=== PATIENT | female | born 1980 | race Caucasian/White ===

== ENCOUNTER 2016-05-13 19:27 | Emergency (ER) | payer OTHER ==
[2016-05-13] MEDS ORDERED: ACETAMINOPHEN 325 MG TABLET PO ONE (20:08)
--- NOTE | 2016-05-13 20:09 | ER Document Report ---
ED Medical Screen (RME) - General Stated Complaint: HEAD/EAR PAIN Mode of Arrival: Ambulatory Information source: Patient Notes: Patient complains of right sided headache pain and ear pain for the past 10 days. Patient denies any injury or fever. hx: Thyroid I have greeted and performed a rapid initial assessment of this patient. A comprehensive ED assessment and evaluation of the patient, analysis of test results and completion of the medical decision making process will be conducted by additional ED providers. TRAVEL OUTSIDE OF THE [place] IN LAST 30 DAYS: No - Related Data Allergies/Adverse Reactions: No Known Allergies Allergy (Verified 04/30/13 20:31) Past Medical History - Immunizations Immunizations up to date: Yes Hx Diphtheria, Pertussis, Tetanus Vaccination: Yes Physical Exam - Neurological Orientation: AAOx4 [place] Coma Scale Eye Opening: Spontaneous [place] Coma Scale Verbal: Oriented Ada Coma Scale Motor: Obeys Commands [place] Coma Scale Total: 15
--- NOTE | 2016-05-13 22:13 | ER Document Report ---
ED ENT - General Chief Complaint: Headache Stated Complaint: HEAD/EAR PAIN Time seen by provider: 21:56 Mode of Arrival: Ambulatory Information source: Patient Notes: 35-year-old female presents to ED for headache and right ear pain for the past 10 days. She has a history of Darryl's and thyroid disease. She states she thought she had a right ear infection. TRAVEL OUTSIDE OF THE [place] IN LAST 30 DAYS: No - HPI Patient complains to provider of: Ear problem, Other - Headache Onset: Other - 10 days Onset/Duration: Gradual Quality of pain: Other - Throbbing Severity: Moderate Pain Level: 3 Associated symptoms: Ear pain, Headache Similar symptoms previously: Yes Recently seen / treated by doctor: No - Related Data Allergies/Adverse Reactions: No Known Allergies Allergy (Verified 04/30/13 20:31) Past Medical History - General Information source: Patient - Social History Smoking Status: Current Every Day Smoker Cigarette use (# per day): Yes Chew tobacco use (# tins/day): No Smoking Education Provided: Yes - less than 1 minute Frequency of alcohol use: Occasional Drug Abuse: None Lives with: Family Family History: Reviewed & Not Pertinent Patient has suicidal ideation: No Patient has homicidal ideation: No - Past Medical History Cardiac Medical History: Reports: None Pulmonary Medical History: Reports: None EENT Medical History: Reports: None Neurological Medical History: Reports: None Endocrine Medical History: Reports: Hx Hypothyroidism, Other - Darryl's Renal/ Medical History: Reports: None Malignancy Medical History: Reports: None GI Medical History: Reports: None Musculoskeltal Medical History: Reports None Skin Medical History: Reports None Psychiatric Medical History: Reports: None Traumatic Medical History: Reports: None Infectious Medical History: Reports: None Surgical Hx: Negative Past Surgical History: Reports: None - Immunizations Immunizations up to date: Yes Hx Diphtheria, Pertussis, Tetanus Vaccination: Yes Review of Systems - Review of Systems Constitutional: No symptoms reported EENT: Ear pain Cardiovascular: No symptoms reported Respiratory: No symptoms reported Gastrointestinal: No symptoms reported Genitourinary: No symptoms reported Female Genitourinary: No symptoms reported Musculoskeletal: No symptoms reported Skin: No symptoms reported Hematologic/Lymphatic: No symptoms reported Neurological/Psychological: No symptoms reported -: Yes All other systems reviewed and negative Physical Exam - Vital signs Interpretation: Normal - General General appearance: Appears well, Alert - HEENT Head: Normocephalic, Atraumatic Eyes: Normal Pupils: PERRL External canal: Normal Tympanic membrane: Normal Hearing loss: Left Nasal: Purulent discharge, Swelling Mouth/Lips: Normal Mucous membranes: Normal Pharynx: Post nasal drainage Neck: Normal - Respiratory Respiratory status: No respiratory distress Chest status: Nontender Breath sounds: Normal Chest palpation: Normal - Cardiovascular Rhythm: Regular Heart sounds: Normal auscultation Murmur: No - Abdominal Inspection: Normal Distension: No distension Bowel sounds: Normal Tenderness: Nontender Organomegaly: No organomegaly - Back Back: Normal, Nontender - Extremities General upper extremity: Normal inspection, Nontender, Normal color, Normal ROM , Normal temperature General lower extremity: Normal inspection, Nontender, Normal color, Normal ROM , Normal temperature, Normal weight bearing. No: Santiago's sign - Neurological Neuro grossly intact: Yes Cognition: Normal Orientation: AAOx4 Ada Coma Scale Eye Opening: Spontaneous Ada Coma Scale Verbal: Oriented Ada Coma Scale Motor: Obeys Commands [place] Coma Scale Total: 15 Speech: Normal Motor strength normal: LUE, RUE, LLE, RLE Sensory: Normal - Psychological Associated symptoms: Normal affect, Normal mood - Skin Skin Temperature: Warm Skin Moisture: Dry Skin Color: Normal Course - Re-evaluation Re-evalutation: 05/14/16 07:21 Assessment consistent with upper respiratory infection. Patient was given instructions on upper respiratory infection use of Tylenol ibuprofen and cold medicine. Patient instructed to follow-up with her primary doctor if she continues to have the right-sided headache and ear pain. Discharge - Discharge Clinical Impression: Otalgia, right ear Upper respiratory infection Qualifiers: URI type: unspecified URI Qualified Code(s): J06.9 - Acute upper respiratory infection, unspecified Condition: Stable Disposition: HOME, SELF-CARE Additional Instructions: UPPER RESPIRATORY ILLNESS: You have a viral infection of the respiratory passages -- a "cold." This common infection causes nasal congestion, drainage, and often sore throat and cough. It is highly contagious. The disease usually lasts about 10 to 14 days. There is no "cure" for the viral infection -- it must run its course. If there is a complication, such as bacterial infection in the nose, sinuses, middle ear, or bronchial tubes, antibiotics may be required. The antibiotics won't affect the virus. Drink plenty of fluids. A humidifier may help. An expectorant medication or decongestant may make you more comfortable. Use acetaminophen or ibuprofen for fever or aches. See the doctor if fever persists over two days, if there is any significant worsening of your symptoms, or if you simply fail to improve as expected. DECONGESTANT MEDICATION: A decongestant medicine has been suggested. Often this medicine is combined in the same tablet with an antihistamine or expectorant. This type of medicine is helpful in treating a bad cold or sinus condition, as well as in treatment of the nasal congestion of hay fever. It is not of much benefit for lung infections. Decongestant medicines are related to stimulants. They can cause an increase in blood pressure and heart rate. Persons with heart disease and high blood pressure should not take decongestants without discussing this with the physician. If you develop palpitations, chest pain, headache, or tremors, stop the medicine and consult your physician. USE OF ACETAMINOPHEN (Tylenol): Acetaminophen may be taken for pain relief or fever control. It's much safer than aspirin, offering a wider range of "safe" dosages. It is safe during . Some brand names are Tylenol, Panadol, Datril, Anacin 3, Tempra, and Liquiprin. Acetaminophen can be repeated every four hours. The following are maximum recommended dosages: >89 pounds or adults 650 mg to 900 mg Acetaminophen can be repeated every four hours. Maximum dose not to exceed 4000 mg a day. FOLLOW-UP CARE: If you have been referred to a physician for follow-up care, call the physician s office for an appointment as you were instructed or within the next two days. If you experience worsening or a significant change in your symptoms, notify the physician immediately or return to the Emergency Department at any time for re-evaluation.
== END 2016-05-13 22:11 | disposition home or self-care (01) ==
LOC: ER 19:27
DX: H92.01 Otalgia, right ear (principal); J06.9 Acute upper respiratory infection, unspecified; R51 Headache; J34.89 Other specified disorders of nose and nasal sinuses; F17.210 Nicotine dependence, cigarettes, uncomplicated; Z71.6 Tobacco abuse counseling
CPT/HCPCS: 99283

== ENCOUNTER → 2016-10-23 | Outpatient (CLI) | payer OTHER ==
[2016-10-23 11:51] LABS: ABSOLUTE BASOPHILS # (AUTO) 0.1 10^3/uL (0.0-0.2); ABSOLUTE EOSINOPHILS # (AUTO) 0.1 10^3/uL (0.0-0.6); ABSOLUTE LYMPHOCYTES (AUTO) 2.2 10^3/uL (0.5-4.7); ABSOLUTE MONOCYTES (AUTO) 0.7 10^3/uL (0.1-1.4); ABSOLUTE NEUT (AUTO) 5.6 10^3/uL (1.7-8.2); BASOPHILS % (AUTO) 0.7 % (0-2); EOSINOPHILS % (AUTO) 1.3 % (0-6); HEMATOCRIT 41.3 % (36.0-47.0); HEMOGLOBIN 13.9 g/dL (12.0-15.5); HGB HCT DIFFERENCE 0.4; LYMPHOCYTES % (AUTO) 25.6 % (13-45); MEAN CORPUSCULAR HEMOGLOBIN 28.3 pg (27.0-33.4); MEAN CORPUSCULAR HGB CONC 33.8 g/dL (32.0-36.0); MEAN CORPUSCULAR VOLUME 84 fl (80-97); MONOCYTES % (AUTO) 7.7 % (3-13); RED BLOOD COUNT 4.92 10^6/uL (3.72-5.28); RED CELL DISTRIBUTION WIDTH 14.4 % (11.5-14.0); SEGMENTED NEUTROPHILS % (AUTO) 64.7 % (42-78); WHITE BLOOD COUNT 8.7 10^3/uL (4.0-10.5)
[2016-10-23 12:13] LABS: ALANINE AMINOTRANSFERASE 22 U/L (9-52); ALBUMIN 4.3 g/dL (3.5-5.0); ALKALINE PHOSPHATASE 139 U/L (38-126); ANION GAP 14 (5-19); ASPARTATE AMINO TRANSFERASE 16 U/L (14-36); BILIRUBIN,DIRECT 0.3 mg/dL (0.0-0.4); BILIRUBIN,TOTAL 0.4 mg/dL (0.2-1.3); BLOOD UREA NITROGEN 10 mg/dL (7-20); CALCIUM 9.1 mg/dL (8.4-10.2); CARBON DIOXIDE 24 mmol/L (22-30); CHLORIDE 103 mmol/L (98-107); CREATININE RESULT 0.67 mg/dL (0.52-1.25); GLUCOSE 95 mg/dL (75-110); SODIUM 140.7 mmol/L (137-145); TOTAL PROTEIN 7.3 g/dL (6.3-8.2)
== END ==
LOC: OD 11:03
DX: Z00.00 Encounter for general adult medical examination without abnormal findings (principal); E03.9 Hypothyroidism, unspecified
CPT/HCPCS: 36415; 80053; 83036; 84443; 85025

== ENCOUNTER 2016-11-04 10:57 | Emergency (ER) | payer SELFPAY ==
[2016-11-04] MEDS ORDERED: DEXAMETHASONE SOD PHOS INJ 10 MG/1 ML VIAL IM ONE (12:06)
[2016-11-04] MEDS ORDERED: KETOROLAC TROMETHAMINE 60 MG/2 ML SDV IM ONE (12:06)
--- NOTE | 2016-11-04 12:10 | ER Document Report ---
ED General - General Chief Complaint: Back Pain Stated Complaint: BACK PAIN, MID CHEST PAIN, PAIN WITH BREATHING Time Seen by Provider: 11/04/16 12:02 Mode of Arrival: Ambulatory Information source: Patient Notes: 36-year-old female presents with complaints of pain in the midsternal region in her back. Patient denies any chest pain, denies any pain when she is not taking a breathing, pt notes when she takes the deep breath the pain is i nthe chest wall and does not feel deeper in . pt denies any dvt or pe risk factors. Pt is in no distress. denies any recent travel, admits to back pain with movement as well. 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 IN LAST 30 DAYS: No - HPI Onset: Other Onset/Duration: Persistent Quality of pain: Achy Severity: Mild Pain Level: 1 Associated symptoms: Body/muscle aches Exacerbated by: Movement, Deep breathing Relieved by: Denies Similar symptoms previously: No Recently seen / treated by doctor: No - Related Data Allergies/Adverse Reactions: No Known Allergies Allergy (Verified 11/04/16 11:24) Home Medications: Current Home Medications Levothyroxine Sodium 1 tab PO DAILY 11/04/16 [History] Sertraline HCl 2 tab PO DAILY 11/04/16 [History] Past Medical History - Social History Smoking Status: Never Smoker Cigarette use (# per day): No Chew tobacco use (# tins/day): No Smoking Education Provided: No Family History: Reviewed & Not Pertinent Patient has suicidal ideation: No Patient has homicidal ideation: No Endocrine Medical History: Reports: Hx Hypothyroidism Renal/ Medical History: Denies: Hx Peritoneal Dialysis - Immunizations Immunizations up to date: Yes Hx Diphtheria, Pertussis, Tetanus Vaccination: Yes Review of Systems - Review of Systems Notes: REVIEW OF SYSTEMS: CONSTITUTIONAL : Denies fever, chills, or sweats. Denies recent illness. EENT: Denies eye, ear, throat, or mouth pain or symptoms. Denies nasal or sinus congestion or discharge. Denies throat, tongue, or mouth swelling or difficulty swallowing. CARDIOVASCULAR: Denies chest pain. Denies palpitations or racing or irregular heart beat. Denies ankle edema. RESPIRATORY: Denies cough, cold, or chest congestion. Denies shortness of breath, difficulty breathing, or wheezing. GASTROINTESTINAL: Denies abdominal pain or distention. Denies nausea, vomiting , or diarrhea. Denies blood in vomitus, stools, or per rectum. Denies black, tarry stools. Denies constipation. GENITOURINARY: Denies difficulty urinating, painful urination, burning, frequency, blood in urine, or discharge. FEMALE GENITOURINARY: Denies vaginal bleeding, heavy or abnormal periods, irregular periods. Denies vaginal discharge or odor. MUSCULOSKELETAL: admits ot chest wall apin, admits ot back pain SKIN: Denies rash, lesions or sores. HEMATOLOGIC : Denies easy bruising or bleeding. LYMPHATIC: Denies swollen, enlarged glands. NEUROLOGICAL: Denies confusion or altered mental status. Denies passing out or loss of consciousness. Denies dizziness or lightheadedness. Denies headache. Denies weakness or paralysis or loss of use of either side. Denies problems with gait or speech. Denies sensory loss, numbness, or tingling. Denies seizures. PSYCHIATRIC: Denies anxiety or stress. Denies depression, suicidal ideation, or homicidal ideation. ALL OTHER SYSTEMS REVIEWED AND NEGATIVE. PHYSICAL EXAMINATION: GENERAL: Well-appearing, well-nourished and in no acute distress. HEAD: Atraumatic, normocephalic. EYES: Pupils equal round and reactive to light, extraocular movements intact, conjunctiva are normal. ENT: Nares patent, oropharynx clear without exudates. Moist mucous membranes. NECK: Normal range of motion, supple without lymphadenopathy LUNGS: Breath sounds clear to auscultation bilaterally and equal. No wheezes rales or rhonchi. HEART: Regular rate and rhythm without murmurs ABDOMEN: Soft, nontender, nondistended abdomen. No guarding, no rebound. No masses appreciated. Female : deferred Musculoskeletal:completely reproducible pain on the sternum, scapular region. no pain when not moving or breathing deep NEUROLOGICAL: Cranial nerves grossly intact. Normal speech, normal gait. Normal sensory, motor exams PSYCH: Normal mood, normal affect. SKIN: Warm, Dry, normal turgor, no rashes or lesions noted. Dictation was performed using Remark recognition software Physical Exam - Vital signs Vitals: Temp Pulse BP Pulse Ox 98.4 F 101 H 121/78 97 11/04/16 11:24 11/04/16 11:24 11/04/16 11:24 11/04/16 11:24 Course - Re-evaluation Re-evalutation: 11/04/16 12:10 Patient has no DVT or PE risk factors, her pain is completely reproducible on palpation, chest x-ray is pending to rule out any abnormality otherwise appears to be musculoskeletal in nature secondary to her work 11/04/16 13:14 xray noted no acute abnormality, pts symptoms improved, will dc home with antinflammatories and close follow up 11/04/16 13:17 After performing a Medical Screening Examination, I estimate there is LOW risk for RUPTURED ESOPHAGUS, PNEUMOTHORAX, PULMONARY EMBOLISM, ACUTE CORONARY SYNDROME, OR THORACIC AORTIC DISSECTION, thus I consider the discharge disposition reasonable. I have reevaluated this patient multiple times and no significant life threatening changes are noted. The patient and I have discussed the diagnosis and risks, and we agree with discharging home with close follow-up. We also discussed returning to the Emergency Department immediately if new or worsening symptoms occur. We have discussed the symptoms which are most concerning (e.g., bloody sputum, worsening pain or shortness of breath) that necessitate immediate return. - Vital Signs Vital signs: Temp Pulse Resp BP Pulse Ox 98.4 F 101 H 121/78 97 11/04/16 11:24 11/04/16 11:24 11/04/16 11:24 11/04/16 11:24 Discharge - Discharge Clinical Impression: Chest wall pain, Muscle strain Condition: Stable Disposition: HOME, SELF-CARE Instructions: Anti-Inflammatory Medication ([facility]), Muscle Strain ([facility]), Chest Wall Pain ([facility]), Warm Packs ([facility]) Additional Instructions: Follow up with your physician tomorrow for further care or return to the ED IMMEDIATELY if symptoms worsen or new concerns occur. If you cannot afford to follow up with your primary care physician a list of low cost clinics have been provided at the end of your discharge papers as well. Prescriptions: Naproxen 500 mg PO BID #20 tablet
--- NOTE | 2016-11-04 13:13 | RADIOLOGY REPORT (SQ) ---
EXAM DESCRIPTION: CHEST PA/LAT COMPLETED DATE/TIME: 11/04/2016 1:01 pm REASON FOR STUDY: sternal tenderness COMPARISON: 04/30/2013 TECHNIQUE: Frontal and lateral radiographic views of the chest acquired. NUMBER OF VIEWS: Two view. LIMITATIONS: None. FINDINGS: LUNGS AND PLEURA: No opacities, masses or pneumothorax. No pleural effusion. MEDIASTINUM AND HILAR STRUCTURES: No masses or contour abnormalities. HEART AND VASCULAR STRUCTURES: Heart normal size. No evidence for failure. BONES: Intact. Sternum unremarkable. No substernal hematoma. HARDWARE: None in the chest. OTHER: No other significant finding. IMPRESSION: NO SIGNIFICANT RADIOGRAPHIC FINDING IN THE CHEST. TECHNICAL DOCUMENTATION: JOB ID: [id number] [employer]- All Rights Reserved
[2016-11-04 13:39] VITALS: BP 106/64
== END 2016-11-04 13:39 | disposition home or self-care (01) ==
LOC: ER 10:57
DX: R07.89 Other chest pain (principal); E03.9 Hypothyroidism, unspecified
CPT/HCPCS: 99283; 96372; 71020; J1885; J1100

== ENCOUNTER → 2018-12-31 | Outpatient (CLI) | payer BC ==
--- NOTE | 2018-12-31 15:32 | XCELERA REPORT ---
[address] [facility] [place] [address] Lower Extremity Venous Evaluation Procedure: Color flow and duplex imaging of the veins of the left lower extremity as well as the right Common Femoral vein. Right Sided Venous Evaluation The right common femoral vein is fully compressible. Spontaneous and phasic flow is present in the right common femoral vein. Left Sided Venous Evaluation Normal vessel filling wall to wall, compression and augmentation as well as Colour flow down to the infrageniculate veins. Interpretation Summary No duplex evidence of DVT or obstruction in the left lower extremity nor in the right Common Femoral vein. Name: BEAU BERTRAND Age: 38 yrs Gender: Female : 1980 Patient Status: Outpatient Patient Location: Study Date: 12/31/2018 10:11 AM Reason For Study: LLE PAIN, 21 WKS PREGANT Ordering Physician: SALONI RITTER Performed By: Garett Osullivan : SALONI RITTER > Sang Motley
== END ==
LOC: SP 09:46
PROVIDERS: ATTEND Advanced Practice Midwife
DX: O99.89 Other specified diseases and conditions complicating pregnancy, childbirth and the puerperium (principal); M79.662 Pain in left lower leg; Z3A.21 21 weeks gestation of pregnancy
CPT/HCPCS: 93971

== ENCOUNTER 2019-03-07 09:00 | Emergency (ER) | payer BC ==
[2019-03-07] MEDS ORDERED: IPRATROPIUM/ALBUTEROL 0.5-2.5 MG/3 ML AMPUL NEB ONE ×2 (09:48→12:44)
--- NOTE | 2019-03-07 09:50 | ER Document Report ---
ED Medical Screen (RME) - General Chief Complaint: Shortness Of Breath Stated Complaint: SHORTNESS OF BREATH Time Seen by Provider: 03/07/19 09:45 Primary Care Provider: SALONI RITTER CNM [Primary Care Provider] - Follow up as needed TRAVEL OUTSIDE OF THE [place] IN LAST 30 DAYS: No - HPI Notes: 03/07/19 09:49 38 year old female to the ED from her OBGYN with cough, SOB, back pain that began three days ago. She is unsure if she has had a fever. Denies mamie chest pain. Denies leg swelling or pain. She states that she is 31 weeks and that this is her first . She is a former smoker. I have performed a medical screening exam on the patient and have determined that the patient will require further management by mainside provider. I have placed initial orders to help expedite the patient's care. - Related Data Allergies/Adverse Reactions: No Known Allergies Allergy (Verified 11/04/16 11:24) Past Medical History Endocrine Medical History: Reports: Hx Hypothyroidism Renal/ Medical History: Denies: Hx Peritoneal Dialysis - Immunizations Immunizations up to date: Yes Hx Diphtheria, Pertussis, Tetanus Vaccination: Yes Physical Exam - Vital signs Vitals: Temp Pulse Resp BP Pulse Ox 98.4 F 100 20 134/69 H 96 03/07/19 09:10 03/07/19 09:10 03/07/19 09:10 03/07/19 09:10 03/07/19 09:10 Course - Vital Signs Vital signs: Temp Pulse Resp BP Pulse Ox 98.4 F 100 20 134/69 H 96 03/07/19 09:45 03/07/19 09:10 03/07/19 09:45 03/07/19 09:10 03/07/19 09:45 Doctor's Discharge - Discharge Referrals: SALONI RITTER CNM [Primary Care Provider] - Follow up as needed
[2019-03-07 10:33] LABS: ABSOLUTE EOSINOPHILS # (AUTO) 0.1 10^3/uL (0.0-0.6); ABSOLUTE MONOCYTES (AUTO) 0.7 10^3/uL (0.1-1.4); ABSOLUTE NEUT (AUTO) 10.2 10^3/uL (1.7-8.2); BASOPHILS % (AUTO) 0.3 % (0-2); EOSINOPHILS % (AUTO) 0.7 % (0-6); HEMATOCRIT 34.8 % (36.0-47.0); HEMOGLOBIN 11.9 g/dL (12.0-15.5); LYMPHOCYTES % (AUTO) 15.3 % (13-45); MEAN CORPUSCULAR HGB CONC 34.3 g/dL (32.0-36.0); MEAN CORPUSCULAR VOLUME 90 fl (80-97); MONOCYTES % (AUTO) 5.2 % (3-13); PLATELET COUNT 265 10^3/uL (150-450); RED BLOOD COUNT 3.86 10^6/uL (3.72-5.28); RED CELL DISTRIBUTION WIDTH 14.5 % (11.5-14.0); SEGMENTED NEUTROPHILS % (AUTO) 78.5 % (42-78); TOTAL CELLS COUNTED % (AUTO) 100 %
--- NOTE | 2019-03-07 10:52 | RADIOLOGY REPORT (SQ) ---
EXAM DESCRIPTION: CHEST 2 VIEWS COMPLETED DATE/TIME: 03/07/2019 10:28 am REASON FOR STUDY: back pain, SOB COMPARISON: 11/04/2016 EXAM PARAMETERS: NUMBER OF VIEWS: two views TECHNIQUE: Digital Frontal and Lateral radiographic views of the chest acquired. RADIATION DOSE: NA LIMITATIONS: none FINDINGS: LUNGS AND PLEURA: No opacities, masses or pneumothorax. No pleural effusion. MEDIASTINUM AND HILAR STRUCTURES: No masses or contour abnormalities. HEART AND VASCULAR STRUCTURES: Heart normal size. No evidence for failure. BONES: No acute findings. HARDWARE: None in the chest. OTHER: No other significant finding. IMPRESSION: NO ACUTE RADIOGRAPHIC FINDING IN THE CHEST. TECHNICAL DOCUMENTATION: JOB ID: [id number] [employer]- All Rights Reserved Reading location - IP/workstation name: [email or web address]
[2019-03-07 10:53] LABS: A TYPE INFLUENZA AG NEGATIVE (NEGATIVE); B INFLUENZA AG NEGATIVE (NEGATIVE)
[2019-03-07 11:01] LABS: ALBUMIN 3.6 g/dL (3.5-5.0); ALKALINE PHOSPHATASE 107 U/L (38-126); ANION GAP 11 (5-19); ASPARTATE AMINO TRANSFERASE 16 U/L (14-36); BILIRUBIN,DIRECT 0.2 mg/dL (0.0-0.4); BILIRUBIN,TOTAL 0.3 mg/dL (0.2-1.3); BLOOD UREA NITROGEN 7 mg/dL (7-20); CALCIUM 9.3 mg/dL (8.4-10.2); CARBON DIOXIDE 24 mmol/L (22-30); CHLORIDE 103 mmol/L (98-107); GLUCOSE 93 mg/dL (75-110); TOTAL PROTEIN 6.6 g/dL (6.3-8.2)
[2019-03-07] MEDS ORDERED: ACETAMINOPHEN 325 MG TABLET PO ONE (12:44)
[2019-03-07] MEDS ORDERED: PREDNISONE 20 MG TABLET PO ONE (12:44)
--- NOTE | 2019-03-07 16:19 | ER Document Report ---
ED Respiratory Problem - General Chief Complaint: Shortness Of Breath Stated Complaint: SHORTNESS OF BREATH Time Seen by Provider: 03/07/19 09:45 Primary Care Provider: SALONI RITTER CNM [Primary Care Provider] - Follow up as needed Information source: Patient Notes: Ms. Mcelroy is a 38 yo f w/ PMH of remote asthma presenting to the ED for shortness of breath. Patient is 30 weeks and 3 days with her first , she is a G1, P0. Patient states that she was a 1 pack a day smoker for at least 20 years and quit 1 month ago. Patient states that when she found out she was she started decreasing from the 1 pack however she did completely quit 1 month ago. She endorses URI symptoms with cough nonproductive of sputum, subjective chills without any documented fevers. Patient also adds that she has had upper back pain. The cough and cold symptoms have been going on for the past 3 days. She also endorses some nasal congestion. She has been using Mucinex with no relief. Patient denies any abdominal pain, vomiting or diarrhea. She states she can feel the baby moving without any issues. TRAVEL OUTSIDE OF THE [place] IN LAST 30 DAYS: No - Related Data Allergies/Adverse Reactions: No Known Allergies Allergy (Verified 11/04/16 11:24) Past Medical History - Social History Smoking Status: Former Smoker - Quit 1 month ago, previous 1ppd for 20 yrs Family History: Reviewed & Not Pertinent Patient has suicidal ideation: No Patient has homicidal ideation: No Endocrine Medical History: Reports: Hx Hypothyroidism Renal/ Medical History: Denies: Hx Peritoneal Dialysis - Immunizations Immunizations up to date: Yes Hx Diphtheria, Pertussis, Tetanus Vaccination: Yes Review of Systems - Review of Systems Constitutional: See HPI EENT: No symptoms reported Cardiovascular: No symptoms reported Respiratory: See HPI Gastrointestinal: No symptoms reported Genitourinary: No symptoms reported Female Genitourinary: No symptoms reported Musculoskeletal: No symptoms reported Skin: No symptoms reported Hematologic/Lymphatic: No symptoms reported Neurological/Psychological: No symptoms reported Physical Exam - Vital signs Vitals: Temp Pulse Resp BP Pulse Ox 98.4 F 100 20 134/69 H 96 03/07/19 09:10 03/07/19 09:10 03/07/19 09:10 03/07/19 09:10 03/07/19 09:10 Interpretation: Normal - General General appearance: Appears well, Alert - HEENT Head: Normocephalic, Atraumatic Eyes: Normal Pupils: PERRL - Respiratory Respiratory status: No respiratory distress Chest status: Nontender Breath sounds: Decreased air movement, Nonproductive cough, Rhonchi - In bases bilaterally, Wheezing - Expiratory Chest palpation: Normal - Cardiovascular Rhythm: Regular Heart sounds: Normal auscultation Murmur: No - Abdominal Inspection: Normal Distension: No distension Bowel sounds: Normal Tenderness: Nontender Organomegaly: No organomegaly - Back Back: Normal, Nontender - Extremities General upper extremity: Normal inspection, Nontender, Normal color, Normal ROM, Normal temperature General lower extremity: Normal inspection, Nontender, Normal color, Normal ROM, Normal temperature, Normal weight bearing. No: Santiago's sign - Neurological Neuro grossly intact: Yes Cognition: Normal Orientation: AAOx4 [place] Coma Scale Eye Opening: Spontaneous [place] Coma Scale Verbal: Oriented [place] Coma Scale Motor: Obeys Commands [place] Coma Scale Total: 15 Speech: Normal Motor strength normal: LUE, RUE, LLE, RLE Sensory: Normal - Psychological Associated symptoms: Normal affect, Normal mood - Skin Skin Temperature: Warm Skin Moisture: Dry Skin Color: Normal Course - Re-evaluation Re-evalutation: Patient is generally well-appearing and nontoxic. Initial vitals within normal limits. Differential diagnosis includes URI, pneumonia, influenza Patient was ordered for labs in 1 DuoNeb from triage. CBC notable for leukocytosis of 13 however there is no significant left shift. EKG nonischemic. CMP limits and flu A/flu B are negative. Chest x-ray negative for any acute process. 03/07/19 12:45 Patient evaluated and continues to have ongoing wheezing expiratory phase. Likely URI, given the patient's extensive smoking history. Possibly undiagnosed COPD. Patient is in her third trimester . Will administer 2 additional DuoNeb's as well as prednisone 60 mg p.o. Will reassess after nebs. 03/07/19 16:16 Reassessed and states that her coughing has decreased significantly. On auscultation, she no longer has any wheezes. Patient will be discharged with albuterol every 4-6 hours 1 to 2 puffs as needed for cough or wheezing as well as prednisone for the next 4 days. Patient instructed to follow-up with her OB and given return precautions. - Vital Signs Vital signs: Temp Pulse Resp BP Pulse Ox 98.4 F 100 29 H 138/74 H 97 03/07/19 09:45 03/07/19 09:10 03/07/19 17:01 03/07/19 17:01 03/07/19 17:01 - Laboratory Result Diagrams: 03/07/19 10:05 03/07/19 10:05 Laboratory results interpreted by me: 03/07/19 03/07/19 10:05 10:05 WBC 13.0 H Hgb 11.9 L Hct 34.8 L RDW 14.5 H Absolute Neuts (auto) 10.2 H Seg Neutrophils % 78.5 H Creatinine 0.50 L - EKG Interpretation by Me EKG shows normal: Sinus rhythm, Intervals, QRS Complexes, ST-T Waves Rate: Normal Rhythm: NSR [place]/QRS: Right axis deviation, RBBB Discharge - Discharge Clinical Impression: Wheezing, Third trimester URI (upper respiratory infection) Qualifiers: URI type: unspecified URI Qualified Code(s): J06.9 - Acute upper respiratory infection, unspecified Condition: Good Disposition: HOME, SELF-CARE Instructions: Bronchitis With Bronchospasm (Wheezing) ([facility]), Upper Respiratory Illness ([facility]), Viral Syndrome ([facility]) Additional Instructions: Use the inhaler every 4-6 hours as needed for shortness of breath. You can use 1 to 2 puffs. It is important that you fully exhale before taking the inhaler so you get the dose of albuterol into your lungs. Make sure that you use the prednisone for the next 4 days. Follow-up with your primary care doctor and OB as needed. Prescriptions: Prednisone [Deltasone 20 mg Tablet] 3 tab PO DAILY 4 Days #12 tablet Albuterol Sulfate [Proair HFA Inhalation Aerosol 8.5 gm MDI] 2 puff IH Q4H PRN #1 mdi PRN Reason: Referrals: SALONI RITTER CNM [Primary Care Provider] - Follow up as needed
[2019-03-07 17:03] VITALS: BP 138/74
--- NOTE | 2019-03-08 14:22 | EKG REPORT ---
SEVERITY:- ABNORMAL ECG - SINUS RHYTHM RIGHT BUNDLE BRANCH BLOCK : Confirmed by: Marika Ackerman 08-Mar-2019 14:22:17
== END 2019-03-07 18:03 | disposition home or self-care (01) ==
LOC: ER 09:00
DX: O99.513 Diseases of the respiratory system complicating pregnancy, third trimester (principal); J45.909 Unspecified asthma, uncomplicated; J06.9 Acute upper respiratory infection, unspecified; O26.893 Other specified pregnancy related conditions, third trimester; R06.02 Shortness of breath; R09.81 Nasal congestion; R05 Cough; O99.89 Other specified diseases and conditions complicating pregnancy, childbirth and the puerperium; M54.9 Dorsalgia, unspecified; O99.113 Other diseases of the blood and blood-forming organs and certain disorders involving the immune mechanism complicating pregnancy, third trimester; D72.829 Elevated white blood cell count, unspecified; O99.413 Diseases of the circulatory system complicating pregnancy, third trimester; I45.10 Unspecified right bundle-branch block; Z3A.33 33 weeks gestation of pregnancy; Z87.891 Personal history of nicotine dependence
CPT/HCPCS: 36415; 85025; 80053; 87804; 71046; J7512; J7620; 93005; 93010; 94640; 99285

== ENCOUNTER 2019-03-31 16:05 | Outpatient (CLI) | payer BC ==
--- NOTE | 2019-03-31 17:44 | Non Stress Test Report ---
Non Stress Test Datetime Report Generated by CPN: 03/31/2019 17:44 DEMOGRAPHIC EGA NST: 33.5 INDICATION Indication for Study (NST) Other: AMA MONITORING Monitor Explained: Monitor Explained; Test Explained; Patient Verbalized Understanding Time on Monitor: 03/31/2019 16:18 Time off Monitor: 03/31/2019 16:53 NST Duration: 35 NST INTERVENTIONS NST Interventions: PO Hydration Physician Notified NST: Dr Orozco BABY A: [id number] BABY A Movement : Present Contraction Frequency : irregular FHR Baseline : 140 Accelerations : 15X15 Decelerations : None Variability : Moderate 6-25bpm NST Review: Meets Criteria for Reactive NST NST Review and Verified By : Annette Delacruz RN NST Results: Reactive NST REPORT Report Trigger: Send Report
== END 2019-03-31 16:58 | disposition home or self-care (01) ==
LOC: LC 16:05
PROVIDERS: ATTEND Obstetrics & Gynecology Gynecology
PROC: 4A1HXCZ Monitoring of Products of Conception, Cardiac Rate, External Approach (ICD-10-PCS; principal; 2019-03-31)
DX: O09.523 Supervision of elderly multigravida, third trimester (principal); Z3A.34 34 weeks gestation of pregnancy
CPT/HCPCS: 59025

== ENCOUNTER 2019-04-14 11:24 | Outpatient (CLI) | payer BC | END 2019-04-14 12:00 | disposition home or self-care (01) | LOC: LC 11:24 | PROVIDERS: ATTEND Obstetrics & Gynecology | PROC: 4A1HXCZ Monitoring of Products of Conception, Cardiac Rate, External Approach (ICD-10-PCS; principal; 2019-04-14) | DX: O09.513 Supervision of elderly primigravida, third trimester (principal); Z3A.35 35 weeks gestation of pregnancy | CPT/HCPCS: 59025 ==

== ENCOUNTER → 2019-04-19 | Outpatient (CLI) | payer BC ==
--- NOTE | 2019-04-19 15:30 | Non Stress Test Report ---
Non Stress Test Datetime Report Generated by CPN: 04/19/2019 15:30 DEMOGRAPHIC EGA NST: 35.5 INDICATION Indication for Study (NST) Other: AMA, pt sent for repeat NST from office VITAL SIGNS Temperature - NST: 98.0 Pulse - NST: 96 RESP - NST: 16 NBPSYS NST: 127 NBPDIA NST: 57 MONITORING Monitor Explained: Monitor Explained; Test Explained; Patient Verbalized Understanding Time on Monitor: 04/14/2019 11:34 Time off Monitor: 04/14/2019 11:56 NST Duration: 22 NST INTERVENTIONS NST Interventions: None Physician Notified NST: P Brenner CNM BABY A: [id number] BABY A Movement : Present Contraction Frequency : none FHR Baseline : 135 Accelerations : 15X15 Decelerations : None Variability : Moderate 6-25bpm NST Review: Meets Criteria for Reactive NST NST Review and Verified By : M Sarah RN NST Results: Reactive NST REPORT Report Trigger: Send Report
== END ==
LOC: LC 14:52
PROVIDERS: ATTEND Obstetrics & Gynecology
DX: Z53.29 Procedure and treatment not carried out because of patient's decision for other reasons (principal)
CPT/HCPCS: 59025

== ENCOUNTER 2019-05-12 17:28 | Outpatient (CLI) | payer BC ==
[2019-05-12 17:55] LABS: APPEARANCE,URINE CLOUDY; BILIRUBIN,URINE NEGATIVE (NEGATIVE); COLOR,URINE YELLOW; GLUCOSE, URINE NEGATIVE (NEGATIVE); KETONES,URINE NEGATIVE (NEGATIVE); LEUKOCYTE ESTERASE,URINE NEGATIVE (NEGATIVE); NITRITE,URINE NEGATIVE (NEGATIVE); PROTEIN,URINE NEGATIVE (NEGATIVE); UROBILINOGEN,URINE NEGATIVE mg/dL (<2.0)
[2019-05-12 18:11] LABS: URINE AMPHETAMINES SCREEN NEGATIVE; URINE BARBITURATES SCREEN NEGATIVE; URINE BENZODIAZEPINES SCREEN NEGATIVE; URINE COCAINE SCREEN NEGATIVE; URINE MARIJUANA (THC) SCREEN NEGATIVE; URINE METHADONE SCREEN NEGATIVE; URINE PHENCYCLIDINE SCREEN NEGATIVE
[2019-05-12] MEDS ORDERED: RINGERS SOLUTION,LACTATED 1,000 ML IV PRN (18:37)
== END 2019-05-12 20:13 | disposition home or self-care (01) ==
LOC: LC 17:28
PROVIDERS: ATTEND Student in an Organized Health Care Education/Training Program
PROC: 4A1HXCZ Monitoring of Products of Conception, Cardiac Rate, External Approach (ICD-10-PCS; principal; 2019-05-12)
DX: O36.8130 Decreased fetal movements, third trimester, not applicable or unspecified (principal); Z3A.39 39 weeks gestation of pregnancy
CPT/HCPCS: 59025; 80307; 81005

== ENCOUNTER 2019-05-13 17:06 | Inpatient (IN) | payer BC ==
--- NOTE | 2019-05-13 17:21 | Non Stress Test Report ---
Non Stress Test Datetime Report Generated by CPN: 05/13/2019 17:20 DEMOGRAPHIC Test Number: 3 EGA NST: 39.5 VITAL SIGNS Temperature - NST: 98.7 Pulse - NST: 114 RESP - NST: 18 NBPSYS NST: 129 NBPDIA NST: 70 MONITORING Monitor Explained: Monitor Explained; Test Explained; Patient Verbalized Understanding Time on Monitor: 05/12/2019 17:50 Time off Monitor: 05/12/2019 19:57 NST Duration: 127 NST INTERVENTIONS NST Interventions: PO Hydration; IV Fluids BABY A: [id number] BABY A Movement : Present Contraction Frequency : 0 FHR Baseline : 125 Accelerations : 15X15 Decelerations : None Variability : Moderate 6-25bpm NST Review: Meets Criteria for Reactive NST NST Review and Verified By : , RN NST Results: Reactive NST REPORT Report Trigger: Send Report
[2019-05-13] MEDS ORDERED: RINGERS SOLUTION,LACTATED 2,000 ML IV ONE (17:23)
[2019-05-13 17:50] LABS: APPEARANCE,URINE CLOUDY; BILIRUBIN,URINE NEGATIVE (NEGATIVE); COLOR,URINE YELLOW; GLUCOSE, URINE NEGATIVE (NEGATIVE); KETONES,URINE NEGATIVE (NEGATIVE); LEUKOCYTE ESTERASE,URINE TRACE (NEGATIVE); NITRITE,URINE NEGATIVE (NEGATIVE); PROTEIN,URINE NEGATIVE (NEGATIVE); URINE SPECIFIC GRAVITY 1.015; UROBILINOGEN,URINE NEGATIVE mg/dL (<2.0)
[2019-05-13 18:08] LABS: URINE AMPHETAMINES SCREEN NEGATIVE; URINE BARBITURATES SCREEN NEGATIVE; URINE BENZODIAZEPINES SCREEN NEGATIVE; URINE COCAINE SCREEN NEGATIVE; URINE MARIJUANA (THC) SCREEN NEGATIVE; URINE METHADONE SCREEN NEGATIVE; URINE PHENCYCLIDINE SCREEN NEGATIVE
[2019-05-13 20:29] LABS: ABSOLUTE BASOPHILS # (AUTO) 0.1 10^3/uL (0.0-0.2); ABSOLUTE EOSINOPHILS # (AUTO) 0.1 10^3/uL (0.0-0.6); ABSOLUTE LYMPHOCYTES (AUTO) 2.2 10^3/uL (0.5-4.7); ABSOLUTE MONOCYTES (AUTO) 0.7 10^3/uL (0.1-1.4); ABSOLUTE NEUT (AUTO) 10.3 10^3/uL (1.7-8.2); BASOPHILS % (AUTO) 0.4 % (0-2); EOSINOPHILS % (AUTO) 0.5 % (0-6); HEMOGLOBIN 11.6 g/dL (12.0-15.5); LYMPHOCYTES % (AUTO) 16.3 % (13-45); MEAN CORPUSCULAR HEMOGLOBIN 31.3 pg (27.0-33.4); MEAN CORPUSCULAR HGB CONC 35.2 g/dL (32.0-36.0); MEAN CORPUSCULAR VOLUME 89 fl (80-97); MONOCYTES % (AUTO) 5.5 % (3-13); PLATELET COUNT 232 10^3/uL (150-450); RED BLOOD COUNT 3.71 10^6/uL (3.72-5.28); SEGMENTED NEUTROPHILS % (AUTO) 77.3 % (42-78); TOTAL CELLS COUNTED % (AUTO) 100 %; WHITE BLOOD COUNT 13.3 10^3/uL (4.0-10.5)
[2019-05-13 20:53] LABS: ALBUMIN 3.2 g/dL (3.5-5.0); ALKALINE PHOSPHATASE 117 U/L (38-126); ANION GAP 7 (5-19); ASPARTATE AMINO TRANSFERASE 15 U/L (14-36); BILIRUBIN,DIRECT 0.3 mg/dL (0.0-0.4); BILIRUBIN,TOTAL 0.3 mg/dL (0.2-1.3); BLOOD UREA NITROGEN 5 mg/dL (7-20); CALCIUM 8.7 mg/dL (8.4-10.2); CARBON DIOXIDE 23 mmol/L (22-30); CHLORIDE 105 mmol/L (98-107); GLUCOSE 86 mg/dL (75-110); POTASSIUM 3.4 mmol/L (3.6-5.0); TOTAL PROTEIN 5.8 g/dL (6.3-8.2); URIC ACID 2.4 mg/dL (2.5-7.0)
[2019-05-13 20:55] LABS: UR PRO/CREAT RATIO RESULT 0.5 mg/mg (0.0-0.2); URINE CREATININE 32.4 mg/dL (16-327); URINE PROTEIN 16.7 mg/dL (<12)
--- NOTE | 2019-05-13 23:03 | RADIOLOGY REPORT (SQ) ---
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 TECHNIQUE: Multiple grayscale and color Doppler images of the pelvis were obtained transabdominally. COMPARISON: None available for this . FINDINGS: A single intrauterine gestation is seen, which is cephalic in position. The placenta is fundal and posterior in location, and free of internal os of the cervix. The estimated heart rate is approximately 137 bpm. The ELLIE measures 0.5 cm, with the deepest vertical pocket of approximately 0.5 cm. The fetus measures at 39 weeks and six days with an estimated due date of 05/14/2024 prior dates. IMPRESSION: A single, live intrauterine gestation is seen which is currently cephalic in position. The ELLIE is low at 0.5 cm. This could be due to ruptured membranes. Interval follow-up with an obstetric care provider is recommended.
[2019-05-13] MEDS ORDERED: CITRIC ACID/SODIUM CITRATE ORAL SOLN 15 ML UDCUP ONE (23:11)
[2019-05-13] MEDS ORDERED: CEFAZOLIN INJ 1 GM VIAL ONE (23:12)
[2019-05-13] MEDS ORDERED: LIDOCAINE 2% INJ-PF (20 MG/ML) 10 ML AMPUL ONE (23:12)
[2019-05-13] MEDS ORDERED: GLYCOPYRROLATE INJ 0.4 MG/2 ML VIAL ONE (23:12)
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
[2019-05-13] MEDS ORDERED: OXYTOCIN 10 UNIT/ML VIAL ONE (23:28)
[2019-05-13] MEDS ORDERED: KETOROLAC TROMETHAMINE INJ/PF 30 MG/1 ML SDV ONE (23:28)
[2019-05-13] MEDS ORDERED: PHENYLEPHRINE HCL INJ/PF 10 MG/1 ML SDV ONE (23:28)
[2019-05-13] MEDS ORDERED: FENTANYL CITRATE INJ/PF 100 MCG/2 ML AMPUL ONE (23:29)
[2019-05-13] MEDS ORDERED: ONDANSETRON HCL INJ/PF 4 MG/2 ML SDV ONE (23:29)
[2019-05-13] MEDS ORDERED: EPHEDRINE SULFATE INJ 50 MG/1 ML AMPULE ONE (23:29)
[2019-05-13] MEDS ORDERED: MIDAZOLAM 2 MG/2 ML INJ ONE (23:29)
[2019-05-13] MEDS ORDERED: OXYTOCIN/NORMAL SALINE 20 UNIT/1,000 ML RTUINJ ONE (23:29)
[2019-05-14] MEDS ORDERED: MIDAZOLAM 2 MG/2 ML INJ ONE (00:18)
[2019-05-14] MEDS ORDERED: OXYTOCIN/NORMAL SALINE 20 UNIT/1,000 ML RTUINJ IV PRN (00:29)
[2019-05-14] MEDS ORDERED: DIPH/PERTUSS(ACELL)/TETANUS VAC/PF 0.5 ML SYR (>=10YO) IM PRN (00:29)
[2019-05-14] MEDS ORDERED: ACETAMINOPHEN 325 MG TABLET PO PRN (00:29)
[2019-05-14] MEDS ORDERED: SIMETHICONE 80 MG TAB.CHEW PO PRN (00:29)
[2019-05-14] MEDS ORDERED: PROMETHAZINE HCL INJ 25 MG/1 ML VIAL IV PRN (00:29)
[2019-05-14] MEDS ORDERED: MORPHINE SULFATE 10 MG/ML INJ IM PRN (00:29)
[2019-05-14] MEDS ORDERED: ACETAMINOPHEN 1,000 MG/100 ML RTUPB IV PRN (00:29)
[2019-05-14] MEDS ORDERED: MEASLES,MUMPS&RUBELLA VACC/PF 0.5 ML VIAL SUBCUT PRN (00:29)
--- NOTE | 2019-05-14 00:32 | Operative Report ---
Operative Report DATE OF SURGERY: 05/14/19 PREOPERATIVE DIAGNOSIS: . Term chronic hypertension oligohydramnios BPP of 0 a nd nonreassuring strip POSTOPERATIVE DIAGNOSIS: Same OPERATION: Low transverse section SURGEON: JERMAINE ABBASI ANESTHESIA: Spinal TISSUE REMOVED OR ALTERED: Placenta ESTIMATED BLOOD LOSS: July 100 cc PROCEDURE: The patient was taken to the operating room where spinal anesthesia was obtained and found to be adequate. She was then prepped and draped in the normal sterile fashion and placed in the dorsal supine position with a leftward tilt. A Pfannenstiel skin incision was then made and carried through to the underlying layers of the fascia with the scalpel. The fascia was incised in the midline and the incision extended laterally with the Kraft scissors. The superior aspect of the fascial incision was then grasped with Brian clamps elevated and the underlying rectus muscles dissected off bluntly. Attention was then turned to the inferior aspect of the fascial incision which in a similar fashion was grasped, tented up with Maite clamps, and the rectus muscles dissected off bluntly. The rectus muscles were then in the midline and the peritoneum at the amount identified and entered bluntly. The peritoneal incision was then extended superiorly and inferiorly with good visualization of the bladder. [The bladder blade was inserted and the vesicouterine peritoneum identified grasped with Ivorian pickups and entered sharply with the Metzenbaum scissors. His incision was then extended laterally with the Metzenbaum scissors and a bladder flap created digitally. The bladder blade was then reinserted and the lower uterine segment incised in a transverse fashion with the scalpel. The uterine incision was then extended bluntly. The bladder blade was removed and the 's head was delivered from cephalic presentation atraumatically. The nose and mouth were suctioned and the cord doubly clamped and cut. And the was handed off to waiting pediatricians. The placenta was then delivered manully and the uterus exteriorized and cleared of all clots and debris. The uterine incision was then repaired with 1-0 Vicryl in a running locked fashion. A second layer of the same suture was used to obtain hemostasis via imbrication of the initial layer. The uterus was returned to the patient's abdomen. The gutters were cleared of all clots and debris. All operative sites were noted to be hemostatic. The fascia was reapproximated with 0 Vicryl in a running fashion from each lateral edge to the midline. The patient tolerated the procedure well. Sponge lap needle and instrument counts are correct -2. 2 g of Ancef were given prior to skin incision. The patient was taken to the recovery area awake and in stable condition.
--- NOTE | 2019-05-14 00:41 | RADIOLOGY REPORT (SQ) ---
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 TECHNIQUE: Transverse and longitudinal real time images of the abdomen were obtained for biophysical profile score. COMPARISON: None available FINDINGS: Observation for at least 20 minutes demonstrates: breathin muscle tone: 0 motion: 0 Amniotic fluid volume: 0 Total biophysical profile score of 0/8. A single intrauterine with the fetus cephalic in position is seen. The heart rate is approximately 123 beats per minute. Amniotic fluid index is approximately 0.5 cm, with the deepest vertical pocket of 0.5 cm. The internal organs were not well visualized, due to the late gestational age. The placenta is fundal and posterior. IMPRESSION: A total biophysical profile score is 0 out of 8 was obtained. The ELLIE measures at 0.5 cm. a single, live intrauterine is cephalic in position.
[2019-05-14] MEDS: OXYCODONE-ACETAMINOPHEN 5-325 MG TABLET PO PRN ×4 (02:50→20:32)
[2019-05-14] MEDS ORDERED: RINGERS SOLUTION,LACTATED 1,000 ML IV PRN (04:18)
[2019-05-14] MEDS ORDERED: LEVOTHYROXINE SODIUM 0.05 MG TABLET ONE ×2 (05:20→05:22)
[2019-05-14] MEDS: IBUPROFEN 800 MG TABLET PO SCH ×4 (05:28→23:57)
[2019-05-14] MEDS ORDERED: LEVOTHYROXINE SODIUM 0.05 MG TABLET PO SCH (06:00)
--- NOTE | 2019-05-14 09:19 | PDOC PROGRESS REPORT ---
Subjective-OB Progress Note for:: 05/14/19 Subjective: Pt doing well, sitting up with baby. Pain is controlled, she has not been out of bed yet, FC to BSD with clear yellow urine. Reg diet, no flatus. Physical Exam (OB) Vital Signs: Temp Pulse Resp BP Pulse Ox 97.8 F 82 17 121/54 L 95 05/14/19 07:40 05/14/19 07:40 05/14/19 07:40 05/14/19 07:40 05/14/19 07:40 Intake & Output 05/13/19 05/14/19 05/15/19 06:59 06:59 06:59 Intake Total 2000 Output Total 250 Balance -250 2000 Weight 115.2 kg - PIH/Pre-Eclampsia Headache: Absent Epigastric Pain: No Visual Changes: No - Dressing Removed: No - Medipore - CD&I - Lochia Lochia Amount: Scant < 10 ml Lochia Color: Rubra/Red - Abdomen Description: Tender, Soft, Round Hernia Present: No Fundal Description: Firm, Midline Fundal Height: u/u - u/2 Objective-Diagnostic Laboratory: 05/13/19 20:12 05/13/19 20:12 05/13/19 05/13/19 05/13/19 17:15 20:12 20:12 WBC 13.3 H RBC 3.71 L Hgb 11.6 L Hct 33.0 L MCV 89 MCH 31.3 MCHC 35.2 RDW 15.0 H Plt Count 232 Seg Neutrophils % 77.3 Sodium 135.0 L Potassium 3.4 L Chloride 105 Carbon Dioxide 23 Anion Gap 7 BUN 5 L Creatinine 0.46 L Est GFR ( Amer) > 60 Glucose 86 Uric Acid 2.4 L Calcium 8.7 Total Bilirubin 0.3 AST 15 Alkaline Phosphatase 117 Total Protein 5.8 L Albumin 3.2 L Urine Color YELLOW Urine Appearance CLOUDY Urine pH 7.0 Ur Specific [place] 1.015 Urine Protein NEGATIVE Urine Glucose (UA) NEGATIVE Urine Ketones NEGATIVE Urine Blood NEGATIVE Urine Nitrite NEGATIVE Ur Leukocyte Esterase TRACE H Blood Type Antibody Screen 05/13/19 20:12 WBC RBC Hgb Hct MCV MCH MCHC RDW Plt Count Seg Neutrophils % Sodium Potassium Chloride Carbon Dioxide Anion Gap BUN Creatinine Est GFR ( Amer) Glucose Uric Acid Calcium Total Bilirubin AST Alkaline Phosphatase Total Protein Albumin Urine Color Urine Appearance Urine pH Ur Specific [place] Urine Protein Urine Glucose (UA) Urine Ketones Urine Blood Urine Nitrite Ur Leukocyte Esterase Blood Type O POSITIVE Antibody Screen NEGATIVE Assessment and Plan(PN) - Assessment and Plan (1) AMA (advanced maternal age) primigravida 35+ Qualifiers: Trimester: unspecified trimester Qualified Code(s): O09.519 - Supervision of elderly primigravida, unspecified trimester Is this a current diagnosis for this admission?: Yes (2) Oligohydramnios Qualifiers: Fetus number: single or unspecified fetus Trimester: third trimester Qualified Code(s): O41.03X0 - Oligohydramnios, third trimester, not applicable or unspecified Is this a current diagnosis for this admission?: Yes (3) Non-reassuring status Is this a current diagnosis for this admission?: Yes (4) delivery delivered Is this a current diagnosis for this admission?: Yes - Time Spent with Patient Time with patient: Less than 15 minutes Medications reviewed and adjusted accordingly: Yes - Disposition Anticipated Discharge: Home Within: within 48 hours
[2019-05-14] MEDS: PRENATAL VITAMIN W DHA CAPSULE PO SCH (10:25)
[2019-05-14] MEDS: DOCUSATE SODIUM 100 MG CAPSULE PO SCH ×2 (10:25→17:07)
[2019-05-15] MEDS: OXYCODONE-ACETAMINOPHEN 5-325 MG TABLET PO PRN ×4 (01:37→21:06)
[2019-05-15] MEDS: IBUPROFEN 800 MG TABLET PO SCH ×4 (05:42→23:49)
[2019-05-15] MEDS: LEVOTHYROXINE SODIUM 0.025 MG TABLET PO SCH (05:43)
[2019-05-15] MEDS: LEVOTHYROXINE SODIUM 0.1 MG TABLET PO SCH (05:43)
[2019-05-15] MEDS ORDERED: IBUPROFEN 800 MG TABLET PO SCH (06:00)
[2019-05-15 07:19] LABS: HEMATOCRIT 29.9 % (36.0-47.0); HEMOGLOBIN 10.4 g/dL (12.0-15.5); MEAN CORPUSCULAR HEMOGLOBIN 31.3 pg (27.0-33.4); MEAN CORPUSCULAR HGB CONC 34.9 g/dL (32.0-36.0); MEAN CORPUSCULAR VOLUME 90 fl (80-97); PLATELET COUNT 197 10^3/uL (150-450); RED BLOOD COUNT 3.34 10^6/uL (3.72-5.28); RED CELL DISTRIBUTION WIDTH 15.1 % (11.5-14.0); WHITE BLOOD COUNT 11.9 10^3/uL (4.0-10.5)
[2019-05-15] MEDS: DOCUSATE SODIUM 100 MG CAPSULE PO SCH ×2 (09:06→22:21)
[2019-05-15] MEDS: PRENATAL VITAMIN W DHA CAPSULE PO SCH (09:06)
--- NOTE | 2019-05-15 10:47 | PDOC PROGRESS REPORT ---
Subjective-OB Progress Note for:: 05/15/19 Subjective: Pt doing well. No concerns, pain is managed. She reports light bleeding, reg diet and voiding without difficulty. Physical Exam (OB) Vital Signs: Temp Pulse Resp BP Pulse Ox 98.1 F 91 16 130/55 H 97 05/15/19 07:35 05/15/19 07:35 05/15/19 07:35 05/15/19 07:35 05/15/19 07:35 Intake & Output 05/14/19 05/15/19 05/16/19 06:59 06:59 06:59 Intake Total 3000 Output Total 250 250 Balance -250 2750 Weight 115.2 kg - Dressing Removed: No - CD&I Incision: Dressing - Lochia Lochia Amount: Scant < 10 ml Lochia Color: Rubra/Red - Abdomen Description: Tender, Soft, Round Hernia Present: No Fundal Description: Firm, Midline Fundal Height: u/u - u/2 Objective-Diagnostic Laboratory: 05/15/19 06:39 05/13/19 20:12 05/15/19 06:39 WBC 11.9 H RBC 3.34 L Hgb 10.4 L Hct 29.9 L MCV 90 MCH 31.3 MCHC 34.9 RDW 15.1 H Plt Count 197 Assessment and Plan(PN) - Assessment and Plan (1) AMA (advanced maternal age) primigravida 35+ Qualifiers: Trimester: unspecified trimester Qualified Code(s): O09.519 - Supervision of elderly primigravida, unspecified trimester Is this a current diagnosis for this admission?: Yes (2) Oligohydramnios Qualifiers: Fetus number: single or unspecified fetus Trimester: third trimester Qualified Code(s): O41.03X0 - Oligohydramnios, third trimester, not applicable or unspecified Is this a current diagnosis for this admission?: Yes (3) Non-reassuring status Is this a current diagnosis for this admission?: Yes (4) delivery delivered Is this a current diagnosis for this admission?: Yes - Time Spent with Patient Time with patient: Less than 15 minutes Medications reviewed and adjusted accordingly: Yes - Disposition Anticipated Discharge: Home Within: within 24 hours
[2019-05-16] MEDS: IBUPROFEN 800 MG TABLET PO SCH ×3 (05:15→17:11)
[2019-05-16] MEDS: LEVOTHYROXINE SODIUM 0.1 MG TABLET PO SCH (05:15)
[2019-05-16] MEDS: LEVOTHYROXINE SODIUM 0.025 MG TABLET PO SCH (05:15)
[2019-05-16] MEDS: OXYCODONE-ACETAMINOPHEN 5-325 MG TABLET PO PRN ×2 (05:16→17:11)
[2019-05-16] MEDS: DOCUSATE SODIUM 100 MG CAPSULE PO SCH ×2 (09:22→17:11)
[2019-05-16] MEDS: PRENATAL VITAMIN W DHA CAPSULE PO SCH (09:22)
--- NOTE | 2019-05-16 12:26 | PDOC DISCHARGE SUMMARY ---
Impression - Admit/DC Date/PCP Admission Date/Primary Care Provider: 05/13/19 23:11 JUNI WALLACE MD Discharge Date: 05/16/19 - Discharge Diagnosis (1) AMA (advanced maternal age) primigravida 35+ Is this a current diagnosis for this admission?: Yes (2) delivery delivered Is this a current diagnosis for this admission?: Yes (3) Non-reassuring status Is this a current diagnosis for this admission?: Yes (4) Oligohydramnios Is this a current diagnosis for this admission?: Yes - Additional Information Discharge Diet: Regular Discharge Activity: Balance Activity w/Rest, No Lifting Over 10 Pounds, No Lifting/Push/Pulling, Pelvic Rest, No tub bath Referrals: JUNI WALLACE MD [Primary Care Provider] - Prescriptions: Ibuprofen [Motrin 800 mg Tablet] 800 mg PO Q8HP PRN #60 tablet PRN Reason: Oxycodone HCl/Acetaminophen [Percocet 5-325 mg Tablet] 1 tab PO Q4HP PRN #30 tablet PRN Reason: Levothyroxine Sodium [Synthroid 0.1 mg Tablet] 125 mcg PO Q6AM #30 tablet Home Medications: Levothyroxine Sodium 1 tab PO DAILY 11/04/16 Albuterol Sulfate [Proair HFA Inhalation Aerosol 8.5 gm MDI] 2 puff IH Q4H PRN #1 mdi 03/07/19 Vit,Calc76/Iron/Folic [Prenatabs Rx Tablet] 1 tab PO DAILY 04/14/19 Ibuprofen [Motrin 800 mg Tablet] 800 mg PO Q8HP PRN #60 tablet 05/16/19 Levothyroxine Sodium [Synthroid 0.1 mg Tablet] 125 mcg PO Q6AM #30 tablet 05/16/19 Oxycodone HCl/Acetaminophen [Percocet 5-325 mg Tablet] 1 tab PO Q4HP PRN #30 tablet 05/16/19 HPI Gestational Age: 39+6 Reason(s) for Admission: Ceasarean Section-Primary - for non-reassuring testing Results Laboratory Results: WBC 11.9 10^3/uL (4.0-10.5) H 05/15/19 06:39 RBC 3.34 10^6/uL (3.72-5.28) L 05/15/19 06:39 Hgb 10.4 g/dL (12.0-15.5) L 05/15/19 06:39 Hct 29.9 % (36.0-47.0) L 05/15/19 06:39 MCV 90 fl (80-97) 05/15/19 06:39 MCH 31.3 pg (27.0-33.4) 05/15/19 06:39 MCHC 34.9 g/dL (32.0-36.0) 05/15/19 06:39 RDW 15.1 % (11.5-14.0) H 05/15/19 06:39 Plt Count 197 10^3/uL (150-450) 05/15/19 06:39 Lymph % (Auto) 16.3 % (13-45) 05/13/19 20:12 [place] % (Auto) 5.5 % (3-13) 05/13/19 20:12 Eos % (Auto) 0.5 % (0-6) 05/13/19 20:12 Baso % (Auto) 0.4 % (0-2) 05/13/19 20:12 Absolute Neuts (auto) 10.3 10^3/uL (1.7-8.2) H 05/13/19 20:12 Absolute Lymphs (auto) 2.2 10^3/uL (0.5-4.7) 05/13/19 20:12 Absolute Monos (auto) 0.7 10^3/uL (0.1-1.4) 05/13/19 20:12 Absolute Eos (auto) 0.1 10^3/uL (0.0-0.6) 05/13/19 20:12 Absolute Basos (auto) 0.1 10^3/uL (0.0-0.2) 05/13/19 20:12 Seg Neutrophils % 77.3 % (42-78) 05/13/19 20:12 Sodium 135.0 mmol/L (137-145) L 05/13/19 20:12 Potassium 3.4 mmol/L (3.6-5.0) L 05/13/19 20:12 Chloride 105 mmol/L (98-107) 05/13/19 20:12 Carbon Dioxide 23 mmol/L (22-30) 05/13/19 20:12 Anion Gap 7 (5-19) 05/13/19 20:12 BUN 5 mg/dL (7-20) L 05/13/19 20:12 Creatinine 0.46 mg/dL (0.52-1.25) L 05/13/19 20:12 Est GFR ( Amer) > 60 (>60) 05/13/19 20:12 Est GFR (MDRD) Non-Af > 60 (>60) 05/13/19 20:12 Glucose 86 mg/dL (75-110) 05/13/19 20:12 Uric Acid 2.4 mg/dL (2.5-7.0) L 05/13/19 20:12 Calcium 8.7 mg/dL (8.4-10.2) 05/13/19 20:12 Total Bilirubin 0.3 mg/dL (0.2-1.3) 05/13/19 20:12 Direct Bilirubin 0.3 mg/dL (0.0-0.4) 05/13/19 20:12 Neonat Total Bilirubin Not Reportable 05/13/19 20:12 Neonat Direct Bilirubin Not Reportable 05/13/19 20:12 Neonat Indirect Bili Not Reportable 05/13/19 20:12 AST 15 U/L (14-36) 05/13/19 20:12 ALT 13 U/L (<35) 05/13/19 20:12 Alkaline Phosphatase 117 U/L (38-126) 05/13/19 20:12 Lactate Dehydrogenase 126 U/L (120-246) 05/13/19 20:12 Total Protein 5.8 g/dL (6.3-8.2) L 05/13/19 20:12 Albumin 3.2 g/dL (3.5-5.0) L 05/13/19 20:12 Urine Color YELLOW 05/13/19 17:15 Urine Appearance CLOUDY 05/13/19 17:15 Urine pH 7.0 (5.0-9.0) 05/13/19 17:15 Ur Specific [place] 1.015 05/13/19 17:15 Urine Protein NEGATIVE mg/dL (NEGATIVE) 05/13/19 17:15 Urine Glucose (UA) NEGATIVE mg/dL (NEGATIVE) 05/13/19 17:15 Urine Ketones NEGATIVE mg/dL (NEGATIVE) 05/13/19 17:15 Urine Blood NEGATIVE (NEGATIVE) 05/13/19 17:15 Urine Nitrite NEGATIVE (NEGATIVE) 05/13/19 17:15 Urine Bilirubin NEGATIVE (NEGATIVE) 05/13/19 17:15 Urine Urobilinogen NEGATIVE mg/dL (<2.0) 05/13/19 17:15 Ur Leukocyte Esterase TRACE (NEGATIVE) H 05/13/19 17:15 Urine Creatinine 32.4 mg/dL (16-327) 05/13/19 19:45 Protein/Creatinin Ratio 0.5 mg/mg (0.0-0.2) H 05/13/19 19:45 Urine Total Protein 16.7 mg/dL (<12) H 05/13/19 19:45 Urine Ascorbic Acid NEGATIVE (NEGATIVE) 05/13/19 17:15 Membranes Rupture NEGATIVE (NEGATIVE) 05/13/19 17:24 Urine Opiates Screen NEGATIVE 05/13/19 17:15 Urine Methadone Screen NEGATIVE 05/13/19 17:15 Ur Barbiturates Screen NEGATIVE 05/13/19 17:15 Ur Phencyclidine Scrn NEGATIVE 05/13/19 17:15 Ur Amphetamines Screen NEGATIVE 05/13/19 17:15 U Benzodiazepines Scrn NEGATIVE 05/13/19 17:15 Urine Cocaine Screen NEGATIVE 05/13/19 17:15 U Marijuana (THC) Screen NEGATIVE 05/13/19 17:15 RPR NONREACTIVE (NONREACTIVE) 05/13/19 20:12 Blood Type O POSITIVE 05/13/19 20:12 Antibody Screen NEGATIVE 05/13/19 20:12 Impressions: Obstetrics Ultrasound 05/13/19 21:15 IMPRESSION: A single, live intrauterine gestation is seen which is currently cephalic in position. The ELLIE is low at 0.5 cm. This could be due to ruptured membranes. Interval follow-up with an obstetric care provider is recommended. Stress Test 05/13/19 21:58 IMPRESSION: A total biophysical profile score is 0 out of 8 was obtained. The ELLIE measures at 0.5 cm. a single, live intrauterine is cephalic in position. Plan Plan of Treatment: follow up in one week at [facility] for incision check
[2019-05-16 12:36] VITALS: BP 127/66
== END 2019-05-16 19:30 | disposition home or self-care (01) | DRG 787 ==
LOC: LC 17:06 → LR 23:11 → 2S 05-14 01:45
PROVIDERS: ADMIT Obstetrics & Gynecology Gynecology; ATTEND Obstetrics & Gynecology Gynecology
PROC: 10D00Z1 Extraction of Products of Conception, Low, Open Approach (ICD-10-PCS; principal; 2019-05-14)
DX: O76 Abnormality in fetal heart rate and rhythm complicating labor and delivery (principal); O41.03X0 Oligohydramnios, third trimester, not applicable or unspecified; O99.334 Smoking (tobacco) complicating childbirth; F17.210 Nicotine dependence, cigarettes, uncomplicated; O99.284 Endocrine, nutritional and metabolic diseases complicating childbirth; E06.3 Autoimmune thyroiditis; O99.344 Other mental disorders complicating childbirth; F41.9 Anxiety disorder, unspecified; Z62.810 Personal history of physical and sexual abuse in childhood; Z79.899 Other long term (current) drug therapy; F32.9 Major depressive disorder, single episode, unspecified; Z3A.39 39 weeks gestation of pregnancy; Z37.0 Single live birth; Z79.890 Hormone replacement therapy
CPT/HCPCS: 1961; 36415; 59025; 76815; 76819; 80053; 80307; 81005; 82570; 83615; 84112; 84156; 84550; 85025; 85027; 86592; 86850; 86900; 86901; 88307; J0690; J1885; J2250; J2270; J2370; J2405; J2590; J3010; J3490; J7120